=== PATIENT | female | born 1930 | race Two or more races ===

== ENCOUNTER 2019-04-14 05:18 | Emergency (ER) | payer MEDICARE, BC ==
[~2019-04-14] VITALS: Ht 162.6 cm; Wt 87.0 kg
[2019-04-14] MEDS ORDERED: TRAMADOL 50MG TABLET PO ONE (06:15)
[2019-04-14] MEDS ORDERED: ACETAMINOPHEN WITH CODEINE 120-12MG/5ML UDC PO ONE (08:30)
[2019-04-14 09:42] VITALS: BP 170/84
== END 2019-04-14 10:15 | disposition home or self-care (01) ==
LOC: ER 05:18
DX: S20.212A Contusion of left front wall of thorax, initial encounter (principal); S49.82XA Other specified injuries of left shoulder and upper arm, initial encounter; E11.9 Type 2 diabetes mellitus without complications; E78.00 Pure hypercholesterolemia, unspecified; I10 Essential (primary) hypertension; Z96.659 Presence of unspecified artificial knee joint; W18.39XA Other fall on same level, initial encounter; Y93.89 Activity, other specified; Y92.89 Other specified places as the place of occurrence of the external cause; Y99.8 Other external cause status
CPT/HCPCS: 71101; 73030; 99283